=== PATIENT | female | born 1940 | race Two or more races ===

== ENCOUNTER 2024-08-31 15:15 | Emergency (ER) | payer OTHER ==
[~2024-08-31] VITALS: Wt 90.7 kg
[2024-08-31] MEDS ORDERED: LACOSAMIDE200 MG PO (15:54)
[2024-08-31] MEDS ORDERED: LACOSAMIDE100 MG PO (15:54)
[2024-08-31] MEDS ORDERED: ELIQUIS5 MG PO (15:54)
[2024-08-31] MEDS ORDERED: KEPPRA100 MG/1 M PO (15:54)
[2024-08-31] MEDS ORDERED: SIMVASTATIN80 MG PO (15:55)
[2024-08-31] MEDS ORDERED: ORPHENADRINE CITRATE 30 MG/ML AMPUL IM STA (18:13)
== END 2024-09-01 01:22 | disposition home or self-care (01) ==
LOC: ER 15:18
DX: S79.819A Other specified injuries of unspecified hip, initial encounter (principal); W19.XXXA Unspecified fall, initial encounter; Y93.89 Activity, other specified; Y92.89 Other specified places as the place of occurrence of the external cause; Y99.8 Other external cause status; M54.31 Sciatica, right side
CPT/HCPCS: 72100; 96372; 99283; J2360